=== PATIENT | female | born 1990 | race African-American/Black ===

== ENCOUNTER 2017-12-24 18:04 | Emergency (ER) | payer OTHER ==
[2017-12-24 19:43] VITALS: BP 109/80
--- NOTE | 2017-12-24 20:31 | RAD ---
INDICATION: Right hand pain COMPARISON: None TECHNIQUE: AP, lateral, and oblique views were obtained. FINDINGS: There is no acute fracture. The joint spaces are maintained. There is mild diffuse soft tissue swelling about the PIP joints of the second and third digits. IMPRESSION: SOFT TISSUE SWELLING. NO ACUTE FRACTURE.
--- NOTE | 2017-12-24 20:34 | UC ---
Hand/Wrist HPI - HPI Summary HPI Summary: PT IS AN IV DRUG USER. INJECTED HEROIN RIGHT WRIST 5 DAYS AGO 12/19. AFTERWARDS HAD HAND PAIN AND SWELLING. FELL ON HAND 2 DAYS LATER AND SINCE THEN 2ND AND 3RD FINGERS HAVE SWELLED UP AND BECOME VERY PAINFUL AND NUMB. TIPS ARE WHITE. DENIES FEVER. - History Of Current Complaint Chief Complaint: UCUpperExtremity Stated Complaint: FINGER PAIN Time Seen by Provider: 12/24/17 19:53 Hx Obtained From: Patient Hx Last Menstrual Period: BEGINNING NOVEMBER Onset/Duration: Gradual Onset, Lasting Days, Still Present Severity Initially: Moderate Severity Currently: Severe Pain Intensity: 10 Pain Scale Used: 0-10 Numeric Character Of Pain: Sharp Aggravating Factor(s): Movement Alleviating Factor(s): Nothing Associated Signs And Symptoms: Positive: Swelling, Redness, Numbness/Tingling - Allergies/Home Medications Allergies/Adverse Reactions: Allergies Allergy/AdvReac Type Severity Reaction Status Date / Time No Known Allergies Allergy Verified 12/24/17 19:43 Home Medications: Home Medications Buprenorphine TAB* [Subutex TAB*] 1.5 tab SL DAILY 12/24/17 [History Confirmed 12/24/17] PMH/Surg Hx/FS Hx/Imm Hx - Additional Past Medical History Additional PMH: IV DRUG USE - Surgical History Surgical History: None - Family History Known Family History: Positive: Hypertension - Social History Alcohol Use: None Substance Use Type: Heroin Substance Use Comment - Amount & Last Used: 07/27/15 "sniffed oxy and vicodin" Smoking Status (MU): Current Every Day Smoker Type: Cigarettes Amount Used/How Often: 5 cigarettes/ daily Have You Smoked in the Last Year: Yes Household Exposure Type: Cigarettes - Immunization History Most Recent Influenza Vaccination: unknown Most Recent Tetanus Shot: 2011 Most Recent Pneumonia Vaccination: never Review of Systems Constitutional: Negative Skin: Other - FINGER TIPS PALE Respiratory: Negative Cardiovascular: Negative Gastrointestinal: Negative Musculoskeletal: Arthralgia, Decreased ROM, Edema All Other Systems Reviewed And Are Negative: Yes Physical Exam Triage Information Reviewed: Yes Appearance: Well-Appearing, No Pain Distress, Well-Nourished Vital Signs: Initial Vital Signs Temp 98.1 F 12/24/17 19:36 Pulse 125 12/24/17 19:36 Resp 16 12/24/17 19:36 BP 109/80 12/24/17 19:36 Pulse Ox 100 12/24/17 19:36 Vital Signs Reviewed: Yes Eyes: Positive: Conjunctiva Clear ENT: Positive: Hearing grossly normal Neck: Positive: Supple Respiratory: Positive: No respiratory distress, No accessory muscle use Cardiovascular: Positive: Pulses Normal Abdomen Description: Positive: Soft Musculoskeletal: Positive: ROM Limited @ - RIGHT 2ND AND 3RD FINGERS, Edema @ - RIGHT 2ND AND 3RD FINGERS, Other: - EXQUISITELY TTP RIGHT 2ND AND 3RD FINGERS Neurological: Positive: Alert Psychological: Positive: Age Appropriate Behavior Skin: Positive: Other - TIPS OF FINGERS PALE. UNABLE TO ASSESS CAP REFILL DUE TO PAIN Diagnostics - Radiology RIGHT HAND XRAY Xray Interpretation: Positive (See Comments) - SOFT TISSUE SWELLING Radiology Interpretation Completed By: Radiologist Hand/Wrist Course/Dx - Course Course Of Treatment: CONCERN FOR VASCULAR COMPROMISE TO RIGHT 2ND AND 3RD FINGERS. [place] [facility] [place] PR[facility]. - Differential Dx/Diagnosis Provider Diagnoses: RIGHT 2ND, 3RD FINGER SWELLING/NUMBNESS Discharge - Discharge Plan Condition: Stable Disposition: OTHER Discharge Disposition Comment: [place] [facility] [place] [facility] [place] Referrals: Enrique Ayers MD [Primary Care Provider] - If Needed Additional Instructions: XRAY TODAY SHOWS SOFT TISSUE SWELLING. [place] DIRECT[place] [facility] [place] FURTHER EVALUATION. CONCERN FOR VASCULAR COMPROMISE TO YOUR RIGHT 2ND AND 3RD FINGERS.
== END 2017-12-24 21:00 ==
LOC: UCEAST 18:04
DX: M25.441 Effusion, right hand (principal); R20.0 Anesthesia of skin; F11.90 Opioid use, unspecified, uncomplicated; F17.210 Nicotine dependence, cigarettes, uncomplicated
CPT/HCPCS: 99212; G0463

== ENCOUNTER 2017-12-24 21:14 | Emergency (ER) | payer OTHER ==
[2017-12-24] MEDS ORDERED: Piperacillin/Tazobac ADVAN(*) 3.375 GM in NS 0.9% 100 ML* 100 ML IVPB ONE (23:20)
[2017-12-24] MEDS ORDERED: Zosyn per Pharmacy* NOTE FOLLOW UP SCH (23:45)
[2017-12-25 00:27] LABS: ABS Basophils 0.1 10^3/ul (0-0.2); ABS Eosinophils 0.4 10^3/ul (0-0.6); ABS Lymphocytes 3.6 10^3/ul (1.0-4.8); ABS Monocytes 0.8 10^3/ul (0-0.8); ABS Neutrophils 7.3 10^3/ul (1.5-7.7); ABS Nucleated RBC 0 10^3/ul; Eosinophil % 3.7 % (0-6); Hematocrit 40 % (35-47); Hemoglobin 13.2 g/dl (12.0-16.0); Lymphocyte % 29.4 % (25-47); Mean Corpuscular HGB Conc 33 g/dl (31-36); Mean Corpuscular Hemoglobin 27 pg (27-31); Mean Corpuscular Volume 81 fL (80-97); Mean Platelet Volume 8 um3 (7.4-10.4); Nucleated Red Blood Cells % 0.1; Platelet Count 326 10^3/ul (150-450); Red Blood Count 4.89 10^6/ul (4.0-5.4); Red Cell Distribution Width 14 % (10.5-15); White Blood Count 12.2 10^3/ul (3.5-10.8)
[2017-12-25 00:40] LABS: EGFR Non-African American 84.8 (>60)
--- NOTE | 2017-12-25 00:47 | ED ---
John Barajas Thomas, scribed for Hernan Gresham on 12/24/17 at 2324 . Upper Extremity Pain - HPI Summary HPI Summary: The patient is a 27 year old female referred from urgent care with pain and swelling to the 2nd and 3rd fingers of her right hand for the last five days. The fingers have bluish discoloration. She used IV drugs at the site of swelling 5 days ago. She complains of chills and sweats. - History of Current Complaint Chief Complaint: EDRashSkinAbscess Stated Complaint: RT HAND SWEELING/SENT FROM CC Hx Obtained From: Patient Hx Last Menstrual Period: BEGINNING NOVEMBER Mechanism Of Injury: Other - IV drug use Onset/Duration: Started Days Ago - 5, Still Present Timing: Constant Severity Initially: Moderate Severity Currently: Severe Pain Location: Other: - 2nd and 3rd fingers of right hand Alleviating Factor(s): Nothing Associated Signs & Symptoms: Positive: Other - Chills, sweats Related History: Other: - IV Drug use - Allergies/Home Medications Allergies/Adverse Reactions: Allergies Allergy/AdvReac Type Severity Reaction Status Date / Time No Known Allergies Allergy Verified 12/24/17 19:43 PMH/Surg Hx/FS Hx/Imm Hx Endocrine/Hematology History: Denies: Hx Anticoagulant Therapy Cardiovascular History: Denies: Hx Myocardial Infarction History: Reports: Other Problems/Disorders - hepatitis C; sickle cell Psychiatric History: Reports: Hx Depression, Hx Substance Abuse - Opiates Infectious Disease History: No Infectious Disease History: Denies: Traveled Outside the [place] in Last 30 Days - Family History Known Family History: Positive: Hypertension - Social History Alcohol Use: None Substance Use Type: Reports: Heroin Substance Use Comment - Amount & Last Used: 07/27/15 "sniffed oxy and vicodin" Smoking Status (MU): Current Every Day Smoker Type: Cigarettes Amount Used/How Often: 5 cigarettes/ daily Have You Smoked in the Last Year: Yes Review of Systems Positive: Chills, Other - sweats. Negative: Fever Positive: Other - Pain, swelling to fingers of right hand All Other Systems Reviewed And Are Negative: Yes Physical Exam - Summary Physical Exam Summary: Appearance: Well appearing, no pain distress Skin: warm, dry, reflects adequate perfusion Head/face: normal Eyes: EOMI, CECI ENT: normal Neck: supple, non-tender Respiratory: CTA, breath sounds present Cardiovascular: RRR, pulses symmetrical Abdomen: non-tender, soft Bowel: present Musculoskeletal: major joints have strength/ROM intact Extremities: On her right hand, the 2nd and 3rd fingers are cold to the touch. They have bluish discoloration. Capillary refill is sluggish. There is a puncture wound to the right wrist. Neuro: normal, sensory motor intact, A&Ox3 Triage Information Reviewed: Yes Vital Signs On Initial Exam: Initial Vitals Temp Pulse Resp BP Pulse Ox 98.3 F 124 18 111/92 100 12/24/17 21:23 12/24/17 21:23 12/24/17 21:23 12/24/17 21:23 12/24/17 21:23 Vital Signs Reviewed: Yes Diagnostics - Vital Signs Vital Signs Temp Pulse Resp BP Pulse Ox 12/24/17 21:23 98.3 F 124 18 111/92 100 - Laboratory Lab Results: Lab Results 12/24/17 12/24/17 12/24/17 Range/Units 00:05 00:05 00:05 WBC 12.2 H (3.5-10.8) 10^3/ul RBC 4.89 (4.0-5.4) 10^6/ul Hgb 13.2 (12.0-16.0) g/dl Hct 40 (35-47) % MCV 81 (80-97) fL MCH 27 (27-31) pg MCHC 33 (31-36) g/dl RDW 14 (10.5-15) % Plt Count 326 (150-450) 10^3/ul MPV 8 (7.4-10.4) um3 Neut % (Auto) 60.0 (38-83) % Lymph % (Auto) 29.4 (25-47) % [place] % (Auto) 6.3 (1-9) % Eos % (Auto) 3.7 (0-6) % Baso % (Auto) 0.6 (0-2) % Absolute Neuts (auto) 7.3 (1.5-7.7) 10^3/ul Absolute Lymphs (auto) 3.6 (1.0-4.8) 10^3/ul Absolute Monos (auto) 0.8 (0-0.8) 10^3/ul Absolute Eos (auto) 0.4 (0-0.6) 10^3/ul Absolute Basos (auto) 0.1 (0-0.2) 10^3/ul Absolute Nucleated RBC 0 10^3/ul Nucleated RBC % 0.1 Sodium 133 (133-145) mmol/L Potassium 3.4 L (3.5-5.0) mmol/L Chloride 101 (101-111) mmol/L Carbon Dioxide 25 (22-32) mmol/L Anion Gap 7 (2-11) mmol/L BUN 8 (6-24) mg/dL Creatinine 0.80 (0.51-0.95) mg/dL Est GFR ( Amer) 109.1 (>60) Est GFR (Non-Af Amer) 84.8 (>60) BUN/Creatinine Ratio 10.0 (8-20) Glucose 88 (70-100) mg/dL Lactic Acid 0.7 (0.5-2.0) mmol/L Calcium 9.3 (8.6-10.3) mg/dL Total Bilirubin 0.90 (0.2-1.0) mg/dL AST 12 L (13-39) U/L ALT 14 (7-52) U/L Alkaline Phosphatase 72 (34-104) U/L Total Protein 7.9 (6.4-8.9) g/dL Albumin 4.0 (3.2-5.2) g/dL Globulin 3.9 (2-4) g/dL Albumin/Globulin Ratio 1.0 (1-3) Result Diagrams: 12/24/17 00:05 12/24/17 00:05 Lab Statement: Any lab studies that have been ordered have been reviewed, and results considered in the medical decision making process. Course/Dx - Course Assessment/Plan: The patient is a 27 year old female referred from urgent care with pain and swelling to the 2nd and 3rd fingers of her right hand for the last five days. The fingers have bluish discoloration, are cold to the touch, and have sluggish capillary refill. 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 Patient will be transferred to [facility] for higher level of care. - Diagnoses Differential Diagnosis/HQI/PQRI: Positive: Contusion, Other - ischemic rt hand/ arterial occlusion Provider Diagnoses: Active intravenous drug use, Gangrene, 2nd and 3rd fingers, R hand, Arterial occlusion - Critical Care Time Critical Care Time: 30-74 min Discharge - Discharge Plan Condition: Stable Disposition: OTHER Discharge Disposition Comment: Transferred to [facility] Referrals: No Primary Care Phys,NOPCP [Primary Care Provider] - The documentation as recorded by the John kurtz Thomas accurately reflects the service I personally performed and the decisions made by me, Hernan Gresham.
[2017-12-25 00:53] LABS: INR 1.07 (0.77-1.02)
[2017-12-25] MEDS ORDERED: oxyCODONE/Acetamin 5/325 MG* TAB PO ONE (01:17)
[2017-12-25 01:54] VITALS: BP 111/70
== END 2017-12-25 01:53 ==
LOC: ED 21:14
DX: I70.268 Atherosclerosis of native arteries of extremities with gangrene, other extremity (principal); F11.10 Opioid abuse, uncomplicated; F17.210 Nicotine dependence, cigarettes, uncomplicated
CPT/HCPCS: 36415; 80053; 83605; 85025; 85610; 85730; 87040; 93005; 96374; 99284; A9270-GY; J2543

== ENCOUNTER 2020-02-16 20:52 | Emergency (ER) | payer OTHER ==
[2020-02-16] MEDS ORDERED: Ketorolac INJ* 30 MG/ML 1 ML VIAL IM ONE (21:13)
[2020-02-16] MEDS ORDERED: Amoxicillin/Clavulanate TAB* 875 MG PO ONE (21:15)
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
[2020-02-16 23:18] VITALS: BP 97/62
== END 2020-02-16 22:40 | disposition home or self-care (01) ==
LOC: ED 20:52
DX: S61.253A Open bite of left middle finger without damage to nail, initial encounter (principal); M54.5 Low back pain; Y07.03 Male partner, perpetrator of maltreatment and neglect; Y04.1XXA Assault by human bite, initial encounter; Y92.009 Unspecified place in unspecified non-institutional (private) residence as the place of occurrence of the external cause; F32.9 Major depressive disorder, single episode, unspecified; F17.210 Nicotine dependence, cigarettes, uncomplicated; Z79.891 Long term (current) use of opiate analgesic
CPT/HCPCS: 72110; 72220; 73140; 96372; 99282; A9270-GY; J1885

== ENCOUNTER 2022-05-29 11:35 | Inpatient (IN) ==
[2022-05-29] MEDS ORDERED: Lactated Ringers 1000 ml BAG 1,000 ML IV ONE (13:15)
[2022-05-29] MEDS ORDERED: Buffered Lidocaine 1% SYRIN 1 ml INTRADERM ONE (13:15)
[2022-05-29] MEDS ORDERED: Lactated Ringers 1000 ml BAG 1,000 ML IV SCH ×2 (14:00→22:00)
[2022-05-29 14:54] LABS: Urine Benzodiazepine Screen None Detected (None Detect); Urine Cannabinoids Screen None Detected (None Detect); Urine Opiates Screen None Detected (None Detect)
[2022-05-29 15:13] LABS: Urine Appearance Clear; Urine Bilirubin Negative (Negative); Urine Blood 1+ (Negative); Urine Color Yellow; Urine Glucose Negative (Negative); Urine Ketones 1+ (Negative); Urine Nitrite Negative (Negative); Urine Protein 1+(30 mg/dL) (Negative); Urine Specific Gravity 1.012 (1.002-1.030); Urine Urobilinogen Positive (Negative)
[2022-05-29 15:28] LABS: ABS Basophils 0.1 10^3/ul (0-0.2); ABS Eosinophils 0.1 10^3/ul (0-0.6); ABS Lymphocytes 1.5 10^3/ul (1.0-4.8); ABS Monocytes 0.5 10^3/ul (0-0.8); ABS Neutrophils 6.5 10^3/ul (1.5-7.7); Hematocrit 36 % (35-47); Hemoglobin 11.6 g/dL (12.0-16.0); Lymphocyte % 17.5 %; Mean Corpuscular HGB Conc 32 g/dL (31-36); Mean Corpuscular Hemoglobin 25 pg (27-31); Mean Corpuscular Volume 79 fL (80-97); Nucleated Red Blood Cells % 0.1; Red Blood Count 4.57 10^6 /uL (3.70-4.87); Red Cell Distribution Width 15 % (10-15); White Blood Count 8.6 10^3/uL (3.5-10.8)
[2022-05-29 15:48] LABS: Urine Bacteria 1+ (Absent); Urine Red Blood Cell Trace(0-2/hpf) (Absent); Urine Squamous Epithelial Cell Present (Absent); Urine White Blood Cell Trace(0-5/hpf) (Absent)
[2022-05-29 16:27] LABS: Platelet Count Platelets clumped. 10^3/uL (150-450)
[2022-05-29] MEDS ORDERED: Oxytocin in LR 20 UNITS/1,000 ML BAG IVPB SCH (18:00)
[2022-05-29] MEDS ORDERED: Glycerin ADULT 2.4 gm SUPP PR PRN (21:23)
[2022-05-29] MEDS ORDERED: Witch Hazel PAD JAR TOPICAL PRN (21:23)
[2022-05-29] MEDS ORDERED: Oxytocin 10 UNITS/ML 1 ML VIAL IM ONE (21:23)
[2022-05-29] MEDS ORDERED: Dibucaine 1% OINT 28.35 GM TUBE PR PRN (21:23)
[2022-05-30 07:13] LABS: ABS Basophils 0.1 10^3/ul (0-0.2); ABS Monocytes 0.9 10^3/ul (0-0.8); ABS Neutrophils 12.4 10^3/ul (1.5-7.7); Eosinophil % 0.3 %; Hematocrit 35 % (35-47); Hemoglobin 11.3 g/dL (12.0-16.0); Lymphocyte % 13.2 %; Mean Corpuscular HGB Conc 33 g/dL (31-36); Mean Corpuscular Hemoglobin 26 pg (27-31); Mean Corpuscular Volume 79 fL (80-97); Mean Platelet Volume 8.3 fL (7.4-10.4); Platelet Count 223 10^3/uL (150-450); Red Blood Count 4.39 10^6 /uL (3.70-4.87); Red Cell Distribution Width 15 % (10-15); White Blood Count 15.4 10^3/uL (3.5-10.8)
[2022-05-30] MEDS ORDERED: Nicotine PATCH 21 MG/24 HR PATCH TRANSDERM SCH (12:30)
[2022-05-31 07:44] VITALS: BP 124/79
[2022-05-31] MEDS ORDERED: Methadone ORALSYR CONC LIQ 10 MG/ML PO SCH (09:00)
== END 2022-05-31 10:40 | disposition home or self-care (01) | DRG 560 ==
LOC: MCHOBOUT 11:35 → MCHOB 13:03
PROVIDERS: ADMIT Obstetrics & Gynecology; ATTEND Obstetrics & Gynecology